=== PATIENT | male | born 1990 | race Caucasian/White ===

== ENCOUNTER 2022-05-28 16:49 | Outpatient (REF) | payer OTHER, SELFPAY ==
[2022-05-28 19:48] LABS: Abs Immature Grans 0.02 10^3/uL (0.0-0.06); Absolute Basophil Count 0.05 10^3/uL (0.0-0.2); Absolute Lymphocyte Count 1.84 10^3/uL (1.2-3.4); Absolute Monocyte Count 0.51 10^3/uL (0.1-0.8); Absolute Neutrophil Count 3.72 10^3/uL (1.2-6.7); Basophils % 0.8; Eosinophils % 1.6; HCT 42.4 % (40.0-50.0); HGB 14.7 g/dL (13.5-17.5); Immature Grans % 0.3; Lymphocytes % 29.5; MCH 29.4 pg (27.0-33.0); MCHC 34.7 % (32.0-36.0); MCV 85 fL (80-95); MPV 9.5 fL (8.0-11.0); Monocytes % 8.2; Neutrophils % 59.6; Platelet Count 318 10^3/uL (130-400); RDW 12.1 % (11.8-14.1); RDW-SD 37.3 fL; WBC 6.24 10^3/uL (4.4-10.8)
[2022-05-28 20:15] LABS: ALT 40 U/L (16-63); AST 25 U/L (15-37); Albumin 4.5 g/dL (3.4-5.0); Alkaline Phosphatase 38 U/L (46-116); Anion Gap 7.9 mmol/L (3-11); BUN 15 mg/dL (7-18); Bilirubin, Total 0.4 mg/dL (0.2-1.0); CO2 28.1 mmol/L (21.0-32.0); CREATININE 1.1 mg/dL (0.70-1.30); Calcium 8.9 mg/dL (8.5-10.1); Chloride 103 mmol/L (98-107); Glucose 105 mg/dL (74-106); Potassium 3.8 mmol/L (3.5-5.1); Sodium 139 mmol/L (136-145); TSH (W/Ref FT4) 0.84 uIU/mL (0.36-3.74); Total Protein 7.4 g/dL (6.4-8.2)
[2022-05-30 10:50] LABS: Lyme Ab w Rflx to Lyme Confirm Negative (Negative)
[2022-06-04 21:15] LABS: Anaplasma phagocytophilum Negative (Negative); B. miyamotoi PCR Negative (Negative); Babesia divergens/MO-1 Negative (Negative); Babesia duncani Negative (Negative); Babesia microti Negative (Negative); Ehrlichia chaffeensis Negative (Negative); Ehrlichia ewingii/canis Negative (Negative); Ehrlichia muris eauclairensis Negative (Negative)
== END 2022-05-28 16:50 | disposition home or self-care (01) ==
LOC: NCHCN 16:49
PROVIDERS: PCP Nurse Practitioner Family; Visit Provider Family Medicine
DX: R53.83 Other fatigue (principal); D23.9 Other benign neoplasm of skin, unspecified; L98.9 Disorder of the skin and subcutaneous tissue, unspecified
CPT/HCPCS: 80053; 87798; 84443; 85025; 86618

== ENCOUNTER 2022-07-02 14:51 | Outpatient (REF) | payer OTHER, SELFPAY ==
--- NOTE | 2022-07-02 14:00 | SKI_PTH ---
PATIENT: Kelechi Rdoas III LOC: [facility]#:[id number] AGE/SX: 32/M ROOM: RE07/02/[address]: Dedrick Doherty : 1990 BED: DIS: 07/02/2022 SPEC #: [id number] RECD: 07/02/22 18:26 STATUS: MAYUR REQ #: [id number] MICK: 07/02/22 14:[address]: Dedrick Doherty DEPT: Surgical Specimen RECD BY: Karen Velez ENTERED: 07/02/22 18:27 SP TYPE: CRISTIANA CENTENO DR: oN [place] Tissues: 1 - SKIN BIOPSY(SHAVE/PUNCH) 2 - SKIN BIOPSY(SHAVE/PUNCH) Procedures: SKIN LEVEL 4 Comments: [id number]
== END 2022-07-02 14:52 | disposition home or self-care (01) ==
LOC: NCHCN 14:51
PROVIDERS: PCP Nurse Practitioner Family; Visit Provider Family Medicine
DX: D22.4 Melanocytic nevi of scalp and neck (principal)
CPT/HCPCS: 88305

== ENCOUNTER 2023-08-09 21:30 | Outpatient (REF) | payer BC, SELFPAY ==
[2023-08-09 17:55] LABS: Calculated LDL 146 mg/dL (<100); Cholesterol 196 mg/dL (<200); HDL Cholesterol 37 mg/dL (40-60); Triglyceride 69 mg/dL (<150)
== END 2023-08-09 21:31 | disposition home or self-care (01) ==
LOC: NCHCN 21:30
PROVIDERS: PCP Nurse Practitioner Family; Visit Provider Nurse Practitioner Family
DX: R53.83 Other fatigue (principal); I10 Essential (primary) hypertension; E78.5 Hyperlipidemia, unspecified; E66.3 Overweight; F90.9 Attention-deficit hyperactivity disorder, unspecified type
CPT/HCPCS: 80061